=== PATIENT | female | born 1995 | race Caucasian/White ===

== ENCOUNTER 2021-06-05 15:07 | Outpatient (CLI) | payer BC | END 2021-06-05 15:08 | disposition home or self-care (01) | LOC: BICULT 15:07 | PROVIDERS: ATTEND Specialist | DX: E28.2 Polycystic ovarian syndrome (principal); N92.0 Excessive and frequent menstruation with regular cycle; P03.89 Newborn affected by other specified complications of labor and delivery | CPT/HCPCS: 76856; 93976 ==